=== PATIENT | male | born 1995 | race African-American/Black ===

== ENCOUNTER 2020-06-19 18:03 | Emergency (ER) | payer OTHER ==
[~2020-06-19] VITALS: Ht 170.2 cm; Wt 104.3 kg
[2020-06-19 18:10] VITALS: TEMP 98.3
[2020-06-19 19:10] VITALS: BP 180/92
== END 2020-06-19 19:10 | disposition home or self-care (01) ==
LOC: ED 18:03
DX: K11.20 Sialoadenitis, unspecified (principal); F17.210 Nicotine dependence, cigarettes, uncomplicated
CPT/HCPCS: 99282

== ENCOUNTER 2020-09-13 15:53 | Emergency (ER) | payer OTHER ==
[~2020-09-13] VITALS: Ht 170.2 cm; Wt 101.2 kg
[2020-09-13 15:53] VITALS: TEMP 98
[2020-09-13 16:33] LABS: POTASSIUM 3.5 mmol/L (3.6-5.2)
[2020-09-13 16:44] LABS: PLATELET COUNT 231 K/uL (142-355)
[2020-09-13 17:35] VITALS: BP 143/80
== END 2020-09-13 17:35 | disposition home or self-care (01) ==
LOC: ED 16:05
PROVIDERS: Family Medicine
DX: J98.01 Acute bronchospasm (principal); F17.210 Nicotine dependence, cigarettes, uncomplicated; X58.XXXA Exposure to other specified factors, initial encounter; Y92.89 Other specified places as the place of occurrence of the external cause
CPT/HCPCS: 36415; 80053; 82805; 85027; 99284

== ENCOUNTER 2021-08-01 19:05 | Emergency (ER) | payer OTHER ==
[~2021-08-01] VITALS: Ht 167.6 cm; Wt 107.0 kg
[2021-08-01 19:11] VITALS: BP 135/104; TEMP 97.8
== END 2021-08-01 19:53 | disposition left against medical advice (07) ==
LOC: ED 19:05
DX: S51.811A Laceration without foreign body of right forearm, initial encounter (principal); X99.1XXA Assault by knife, initial encounter; Y92.89 Other specified places as the place of occurrence of the external cause; Z53.29 Procedure and treatment not carried out because of patient's decision for other reasons
CPT/HCPCS: 99282

== ENCOUNTER 2021-08-02 02:18 | Emergency (ER) | payer OTHER ==
[~2021-08-02] VITALS: Ht 167.6 cm; Wt 108.0 kg
[2021-08-02 02:32] VITALS: TEMP 98.9
[2021-08-02 03:58] LABS: PLATELET COUNT 239 K/uL (142-355)
[2021-08-02 04:06] LABS: POTASSIUM 3.7 mmol/L (3.6-5.2)
[2021-08-02 05:39] VITALS: BP 133/95
[2021-08-02 09:54] LABS: POTASSIUM 3.9 mmol/L (3.6-5.2)
== END 2021-08-03 06:22 | disposition other institution (70) ==
LOC: ED 02:18
PROVIDERS: Emergency Medicine
DX: F32.9 Major depressive disorder, single episode, unspecified (principal); R45.851 Suicidal ideations
CPT/HCPCS: 36415; 80048; 80053; 80143; 80179; 80307; 80320; 81000; 83930; 83935; 84133; 84300; 84443; 85027; 93005; 96360; 99285